=== PATIENT | male | born 1985 | race Two or more races ===

== ENCOUNTER 2022-05-05 10:38 | Emergency (ER) | payer OTHER, SELFPAY ==
--- NOTE | 2022-05-05 10:43 | ED.URI ---
HPI - URI/Sore Throat General Chief Complaint: Upper Respiratory Infection Stated Complaint: sore throat Time Seen by Provider: 05/05/22 10:41 Source: patient Mode of arrival: ambulatory Limitations: no limitations History of Present Illness HPI Narrative: Patient is 36-year-old male presenting to the clinic today with complaints of a sore throat x1 day. He reports no fever, chills, runny nose, or cough. He denies any known exposure to anybody with COVID, flu, or strep. States he also is having some fatigue. MD elicited complaint: sore throat and nasal congestion Related Data Home Medications Medication Instructions Recorded Confirmed No Home Medications 05/05/22 05/05/22 Allergies Allergy/AdvReac Type Severity Reaction Status Date / Time No Known Allergies Allergy Verified 05/05/22 10:53 Review of Systems Review of Systems: Pertinent positives per HPI. Patient denies any fever, chills, rash, headache, visual changes, dizziness, cough, shortness of breath, chest pain, palpitations, nausea, vomiting, diarrhea, constipation, abdominal pain, or any urinary issues. PMFSH Comments At the time of my signature, I reviewed and agree with the nursing past medical, surgical, social, and family history. There is no relevant family history pertinent to the patient complaint. Exam Narrative: General: Well-developed, well nourished, in no apparent distress Head: Normocephalic, atraumatic Eyes: Pupils equally round and reactive to light bilaterally, EOM intact, sclera and conjunctive clear, no discharge, lids normal Ears: TMs intact and clear, ear canals clear, no drainage, grossly hearing normal. Nose: Nares patent, clear discharge, no inflammation, no sinus tenderness. Mouth: Oral pharynx without lesions or masses, good dentition, MMM. Oropharynx red with bilateral tonsillar swelling without exudate Neck: Supple, trachea midline, mild enlargement of anterior cervical nodes, no thyroid masses or goiter palpable. Cardio: Regular rate and rhythm, s1 and s2 normal, no murmur appreciated. Resp: Clear to auscultation bilaterally, no rhonchi, rales, wheezing or rubs Course Course Emergency Course: Portions of this record may have been created with voice recognition software. Level of Care: Express Care Visit Vital Signs Vital signs: Vital Signs Temperature 37.3 C 05/05/22 10:49 Pulse Rate 95 05/05/22 10:49 Respiratory Rate 16 05/05/22 10:49 Blood Pressure 142/94 H 05/05/22 10:49 Pulse Oximetry 98 05/05/22 10:49 Oxygen Delivery Room Air 05/05/22 10:49 Temperature 37.3 C 05/05/22 10:49 Pulse Rate 95 05/05/22 10:49 Respiratory Rate 16 05/05/22 10:49 Blood Pressure 142/94 H 05/05/22 10:49 Pulse Oximetry 98 05/05/22 10:49 Oxygen Delivery Room Air 05/05/22 10:49 Vital signs reviewed MDM - URI/Sore Throat MDM Narrative Medical decision making narrative: At the time of visit patient is resting comfortably on the exam table. Strep screen was obtained and was negative in the clinic today. I suspect patient has viral pharyngitis. Will send strep for culture and supportive measures were discussed with the patient he voiced understanding discharge instructions and agrees to treatment plan. Differential Diagnosis Differential diagnosis: Likely upper respiratory infection, otitis media, sinusitis, viral infection, bronchitis, influenza, pharyngitis and other (COVID) Lab Data Labs: Strep Screen Presumptive Negative *(Reference Range: Negative)* Discharge Plan Discharge Clinical Impression: Pharyngitis Qualifiers: Pharyngitis/tonsillitis etiology: unspecified etiology Qualified Code(s): J02.9 - Acute pharyngitis, unspecified Patient Disposition: Home, Self-Care Condition: Stable Instructions: Antibiotic Form, Pharyngitis (ED) Additional Instructions: Strep screen was negative in the clinic today. We
[2022-05-05 10:49] VITALS: BP 142/94; PULSE 95; RESP 16; TEMP 37.3; O2SAT 98
== END 2022-05-05 11:09 | disposition home or self-care (01) ==
PROVIDERS: Emergency Provider Nurse Practitioner Family
DX: J02.0 Streptococcal pharyngitis (principal)
CPT/HCPCS: 87081; 87147; 87880; 99213; G0463

== ENCOUNTER 2022-05-30 10:49 | Outpatient (CLI) | payer OTHER, SELFPAY ==
[2022-05-30 12:03] LABS: Kit Draw Collected
== END 2022-05-30 10:50 | disposition home or self-care (01) ==
LOC: ANHGOSHLAB 10:51
PROVIDERS: PCP Family Medicine; Visit Provider Family Medicine
DX: D56.1 Beta thalassemia (principal); E03.9 Hypothyroidism, unspecified
CPT/HCPCS: 36415

== ENCOUNTER 2024-12-08 10:26 | Outpatient (CLI) | payer OTHER, SELFPAY ==
[2024-12-08 11:27] LABS: Strep Group A RT-PCR DETECTED (Negative)
--- OUTSIDE RECORDS SUMMARY | 2024-12-08 11:50 | XMS_ITS | Patient Health Record ---
Author Organization [facility] Address [address] [place] [id number] Support Name Relationship Address Phone Hernan Ramsay Guarantor Unknown Unavailable Reason For Referral No Information Medications Medication SIG (Take, Route, Frequency, Duration) Notes Start Date End Date Status Vitamin D3 50 MCG (1999) Tablet Oral Active Social History Social History Additional Details Category Social Info Options Details Migrated Social History Migrated Social History Occupation :: Employed, time checker , Substance Use :: Alcohol :: Current - status unknown :: note : 11/16/2017 - Use status used: Current - status unknown , Substance Use :: Other Substance Use :: Never :: note : 11/16/2017 - , Substance Use :: Tobacco :: Never :: note : 11/16/2017 - Plan Of Treatment No Information Insurance Providers Payer Name Payer Address Payer Phone Subscriber Number Group Number Insured Name Patient Relationship to Insured Coverage Start Date Coverage End Date [employer] [address] [place] [phone] [id number] Hernan Ramsay Self - patient is the insured
--- OUTSIDE RECORDS SUMMARY | 2024-12-08 11:51 | XMS_ITS | Clinical Summary ---
Author Organization [facility] Address [address] [place] [address] Phone [email or web address] Care Team Providers Care Sports Administrator Name Role Phone Jennifer Rios [employer] Primary Care Provider [phone] Allergies No known active allergies Medications mupirocin (Bactroban Nasal) 2 % nasal ointmentIndicat ions:Wellness examination,Med ication refill After application, press sides of nose together and gently massage. 10 g 2 2 Active clobetasol (TEMOVATE) 0.05 % ointmentIndicat ions:Wellness examination,Med ication refill Apply topically 2 (two) times a day. To foot lesions 30 g 2 Active levocetirizine (XYZAL) 5 MG tabletIndicatio ns:Wellness examination,Med ication refill Take 1 tablet (5 mg total) by mouth 1 (one) time each day in the evening. 30 tablet 2 2 Active fluticasone (Flonase) 50 MCG/ACT nasal sprayIndication s:Wellness examination,Med ication refill Administer 1 spray into each nostril 1 (one) time each day. 16 g 2 Active Active Problems Problem Noted Date Diagnosed Date Wellness examination 09/27/2021 Seasonal allergies 09/27/2021 Acquired hypothyroidism 07/23/2020 Lipoma of other specified sites 07/24/2015 Overview (08/25/2017): Psoriasis 07/24/2015 Overview (08/25/2017): Thalassemia 03/30/2009 Overview (08/25/2017): Resolved Problems Problem Noted Date Diagnosed Date Resolved Date Overweight (BMI 25.0-29.9) 01/27/2020 0 09/07/2020 Overview (01/27/2020): Will consider referral for Editorial Specialist or Computer Help Desk Specialist in the future if desired by the patient. Thalassemia minor 09/04/2017 07/23/2020 Overview (09/08/2017): Other specified abnormal fin dings of blood chemistry 09/23/2016 07/23/2020 Overview (08/25/2017): Abnormal results of thyroid function studies 7 07/23/2020 Overview (08/25/2017): Internal hemorrhoids 09/19/2016 019 Overview (08/25/2017): Abnormal results of liver function studies 09/18/2016 07/23/2020 Overview (08/25/2017): Essential hypertension 06/18 Overview (08/25/2017): Calculus of kidney 9 Overview (08/25/2017): Immunizations Immunization Administration Dates Next Due COVID-19 (Pfizer Yell 12 yrs+) (CVX-208) 022 Influenza (Flucelvax) MDCK, PF, quad (CVX-171) 1 04/10/2017 Influenza multi-dose VIAL (A fluria,Fluzone) trivalent (CVX-141) 01/20/2017 Tdap (ADACEL BOOSTRIX) (CVX-115) 09/18/2016 Family History Medical History Relation Name Comments Hypertension Father Hyperlipidemia Mother Diabetes Mother's Sister Relation Name Status Comments Father Mother Mother's Sister Social History Tobacco Use Types Packs/Day Years Used Date Smoking Tobacco: Never Smokeless Tobacco: Never Tobacco Cessation:Counseling Given: Yes Alcohol Use Standard Drinks/Week Comments Yes 4 (1 standard drink = 0.6 oz pur e alcohol) occassionally Intimate Partner Violence Answer Date R ecorded Insults You Not on file 07/10/2020 Threatens You Not on file 07/10/2020 Screams at You Not on file 07/10/2020 Physically Hurt Not on file 07/10/2020 Intimate Partner Violence Score Not on file 07/10/2020 Alcohol Use Answer Date Recorded Alcohol Use Status Yes 09/27/2021 Depression Answer Date Recorded PHQ Total Score 0 01/07/2022 Stress Answer Date Recorded How would you describe the stress in your daily life? Moderate 09/26/2021 How effective are you with dealing with your str ess? Very effective 09/26/2021 Physical Activity Answer Date Recorded How often do you engage in m oderate physical activity for 30 minutes or more? Never 09/26/2021 How often do you engage in v igorous physical activity for 20 minutes or more? Never 09/26/2021 How many hours per day do you spend sitting? Mor e than 8 hours 09/26/2021 Sex and Gender Information Value Date Recorded Sex Assigned at Male 07/23/2021 10:46 AM CDT Legal Sex Male 1:33 PM CDT Gender Identity Male 10/08/2017 3:57 PM CDT Sexual Orientation Not on file Last Filed Vital Signs Vital Sign Reading Time Taken Comments Blood Pressure 120/80 09/27/2021 2:17 PM CDT Pulse 80 09/27/2021 2:17 PM CDT Temperature 36.8 C (98.3 F) 09/27/2021 2:17 PM CDT Respiratory Rate 18 09/27/2021 2:17 PM CDT Oxygen Saturation 98% 09/27/2021 2:17 PM CDT Inhaled Oxygen Concentration - - Weight 75.8 kg (167 lb 3.2 oz) 09/27/2021 2:17 P M CDT Height 170.2 cm (5' 7) 09/27/2021 2:17 PM CDT Body Mass Index 26.19 09/27/2021 2:17 PM CDT Plan of Treatment Health Maintenance Due Date Last Done Comments Dental Cleaning/Exam 1986 HPV Immunization (1 - Male 3-dose series) 2001 Hepatitis B Immunization (1 of 3 - 19+ 3-dose series) 2005 Covid-19 Immunization (4 - season) 2024 07/15/2021, 02/28/2021, 07/05/2020 Influenza Immunization (#1) 2024 10/10/2018, 02/08/2018, 01/20/2017 Tetanus Diphtheria and Pertussis Immunization (2 - Td or Tdap) 09/18/2026 09/18/2016 HIB Immunization Aged Out No longer e ligible based on patient's age to complete this topic Hepatitis A Immunization Aged Out No longer eligible based on patient's age to complete this topic Pneumococcal: Ped (0 to 5 Yrs) and At-Risk Member (6 to 64 Yrs) Aged Out No longer eligible b ased on patient's age to complete this topic Polio Immunization Aged Out No longer eligible based on patient's age to complete this topic Varicella Immunization Aged Out No lo nger eligible based on patient's age to complete this topic Procedures Procedure Name Priority Date/Time Associated Diagnosis Comments INFLUENZA VIRUS VACCINE, QUADRIVALENT (IIV4), SPLIT VIRUS, PRESERVATIVE FREE, 0.5 ML DOSAGE, PFS FOR IM USE (21075) (150) Routine 01/04/2019 11:30 AM CDT from Last 3 Months or Most Recently Relevant to Health Maintenance Results * Influenza virus vaccine, quadrivalent (IIV4), split virus, preservative free, 0.5 mL dosage, PFS for IM use (15498) (150) (01/04/2019 11:30 AM CDT) Alejandra Dias MD IMMUNIZATION ORDERABLES Fi nal Result from Last 3 Months or Most Recently Relevant to Health Maintenance Insurance [facility] HRA Care Teams Sports Administrator Relationship Specialty Start Date End Date Jennifer Rios NP [address] [place] [address] PCP - General Family Medicine 10/08/17
== END 2024-12-08 10:27 | disposition home or self-care (01) ==
LOC: ANHLAB 10:27
PROVIDERS: PCP Family Medicine
DX: J02.9 Acute pharyngitis, unspecified (principal)
CPT/HCPCS: 87651